=== PATIENT | female | born 1955 | race Caucasian/White ===

== ENCOUNTER → 2016-09-23 | Outpatient (CLI) | payer MEDICARE, BC, OTHER ==
[~2016-09-23] MED LIST: ALBUTEROL SULFATE 0.083% NEB 2.5 MG/3 ML AMPUL NEB ONE
--- NOTE | 2016-09-25 08:52 | PULMONARY FUNCTION TEST ---
DATE OF SERVICE: 09/23/2016 THE VITAL CAPACITY IS MODERATELY DECREASED. THE EXPIRATORY FLOW RATES ARE SEVERELY DECREASED. THE FEV1/VC IS 55%, PREDICTED: 82% LUNG VOLUMES BY NITROGEN WASH OUT METHOD SHOW: TLC IS 87% OF PREDICTED FRC IS 114% OF PREDICTED RV IS 124% OF PREDICTED THE DLCO IS 12.5, 51% OF PREDICTED. THE RV/TLC RATIO IS 54% PREDICTED 37% AFTER BRONCHODILATOR, EXPIRATORY FLOW RATES SHOW SIGNIFICANT IMPROVEMENT. IMPRESSION: GOOD PATIENT EFFORT. SEVERE OBSTRUCTIVE DEFECT. LUNG VOLUMES ARE NORMAL. DIFFUSING CAPACITY IS MODERATELY DECREASED. EXPIRATORY FLOW RATES IMPROVE SIGNIFICANTLY AFTER BRONCHODILATOR. CC: RILEY GRANADOS MD > EMILIAD
== END ==
LOC: RT 10:11
PROVIDERS: ATTEND Internal Medicine Pulmonary Disease
DX: J44.9 Chronic obstructive pulmonary disease, unspecified (principal)
CPT/HCPCS: 94729 ×2; 94727 ×2; 94060 ×2; A9270